=== PATIENT | male | born 1995 | race Caucasian/White ===

== ENCOUNTER 2017-01-12 01:09 | Emergency (ER) | payer BC ==
[~2017-01-12] VITALS: Ht 190.5 cm; Wt 83.8 kg
[2017-01-12 01:12] VITALS: TEMP 36.5; Ht 190.5 cm; Wt 83.8 kg
[2017-01-12] MEDS ORDERED: ONDANSETRON INJ 2 MG/ML 2 ML VIAL IV STA (01:28)
[2017-01-12] MEDS ORDERED: MoRPHine SULFATE 4 MG/ML 1 ML CARP\\VIAL IV PRN (01:30)
[2017-01-12] MEDS ORDERED: SODIUM CHLORIDE 0.9% 1000ML 1,000 ML IV ONE (01:30)
[2017-01-12] MEDS ORDERED: OPTIRAY 320 IV PRN (01:45)
[2017-01-12 01:49] LABS: BASO % 0.4 %; BASO ABS # 0.04 K/uL (0-0.2); COMPLETE YES; EOS % 5.3 %; HEMATOCRIT 43.4 % (42-52); IG% 0.2 %; LYMPH % 27.1 %; LYMPH ABS # 2.47 K/uL (1.2-3.4); MEAN CELL VOLUME 88.8 fL (80-100); MEAN CORPUSCULAR HEMOGLOBIN 31.1 pg (25-34); MEAN PLATELET VOLUME 9.2 fL (7.4-10.4); MONO % 10.1 %; NEUT % 56.9 %; PLATELET COUNT 233 K/uL (130-400); RED BLOOD COUNT 4.89 M/uL (4.7-6.1); WHITE BLOOD COUNT 9.12 K/uL (4.8-10.8)
[2017-01-12 02:06] LABS: BUN/CREATININE RATIO 9.7 (10-20); CALCIUM 9.2 mg/dl (8.5-10.1); CREATININE 1.3 mg/dl (0.60-1.40); POTASSIUM 3.5 mmol/L (3.5-5.1)
[2017-01-12 02:08] LABS: ALB/GLOB RATIO 1.4 (0.9-2)
[2017-01-12 02:56] LABS: URINE APPEARANCE CLEAR (CLEAR); URINE BILIRUBIN NEG (NEG); URINE COLOR YELLOW; URINE EPITHELIAL CELL AUTO 0-5 /lpf (0-5); URINE NITRITE NEG (NEG); URINE SPECIFIC GRAVITY 1.018 (1.000-1.030); UROBILINOGEN NEG (NEG); ZZUR CULT IF INDIC CLEAN CATCH NO
[2017-01-12 03:05] LABS: MANUAL MICROSCOPIC REQUIRED? NO; REVIEW REQ? NO
[2017-01-12] MEDS ORDERED: ONDANSETRON HOME PACK 4MG OD TAB PO ONE (05:00)
[2017-01-12 05:20] VITALS: BP 120/73; PULSE 61; O2SAT 98
--- NOTE | 2017-01-12 06:37 | EMERGENCY ROOM VISIT NOTE ---
History First contact with patient: 01:20 Chief Complaint: ABDOMINAL PAIN Stated Complaint: SEVERE STOMACH PAIN Nursing Triage Summary: pt reports abdominal pain started at 1930 , denies [place] History of Present Illness The patient is a 21 year old male who presents to the Emergency Room with complaints of generalized abdominal pain of increasing severity over the past 5 or 6 hours. 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 The patient woke up around 7 pm tonight, ate dinner, and began to have some worsening of his pain. He has not had fever or chills. No nausea or vomiting. He did attempt to go to work, but states that his pain escalated in severity. He rates his current discomfort 9/10. He has not had symptoms like this in the past. He does not have previous abdominal surgeries. No recent travel history or antibiotic use. No diarrhea. Review of Systems More than 10 systems were reviewed and otherwise negative with the exception of history of present illness. Past Medical/Surgical History No chronic medical disease Social History Smoking Status: Never Smoker Occupation Status: employed Current/Historical Medications No Active Prescriptions or Reported Meds Physical Exam Vital Signs Date Time Temp Pulse Resp B/P (MAP) Pulse Ox O2 Delivery O2 Flow Rate FiO2 01/12/17 05:20 61 18 120/73 98 01/12/17 03:06 51 18 108/59 98 Room Air 01/12/17 01:12 36.5 52 16 135/81 99 Room Air Pain Rating (0-10): 0 Physical Exam VITALS: Vitals are noted on the nurse's note and reviewed by myself. Vital signs stable. GENERAL: Well-developed, well-nourished, white male, who is in no acute distress and resting comfortably. Patient is cooperative with the examination. HEAD: Normocephalic atraumatic. HEART: Regular rate and rhythm without murmurs gallops or rubs. LUNGS: Clear to auscultation bilaterally without wheezes, rales or rhonchi. No retractions or accessory muscle use. ABDOMEN: Positive normal bowel sounds x 4. Soft with generalized abdominal tenderness. Tenderness is most appreciated in the right lower quadrant. No rebound or guarding. No CVA tenderness. MUSCULOSKELETAL: No muscle atrophy, erythema, or edema noted. Full range of motion without joint tenderness in all extremities. Medical Decision & Procedures ER Provider Diagnostic Interpretation: Preliminary Findings Only See Final Report For Complete Findings CT ABDOMEN & PELVIS: Scattered air-fluid levels noted within the bowel without evidence of obstruction; contributing gastroenteritis of consideration. Appendix incompletely profiled although visualized segment appears unremarkable ; no pericecal inflammatory changes. Moderate colonic fecal retention. No free air or fluid. Left renal cyst. Laboratory Results 01/12/17 01:38 Red Blood Count 4.89, Mean Corpuscular Volume 88.8, Mean Corpuscular Hemoglobin 31.1, Mean Corpuscular Hemoglobin Concent 35.0, Mean Platelet Volume 9.2, Neutrophils (%) (Auto) 56.9, Lymphocytes (%) (Auto) 27.1, Monocytes (%) (Auto) 10.1, Eosinophils (%) (Auto) 5.3, Basophils (%) (Auto) 0.4, Neutrophils # (Auto ) 5.19, Lymphocytes # (Auto) 2.47, Monocytes # (Auto) 0.92, Eosinophils # (Auto ) 0.48, Basophils # (Auto) 0.04 01/12/17 01:38 Test 01/12/17 01:38 White Blood Count 9.12 K/uL (4.8-10.8) Red Blood Count 4.89 M/uL (4.7-6.1) Hemoglobin 15.2 g/dL (14.0-18.0) Hematocrit 43.4 % (42-52) Mean Corpuscular Volume 88.8 fL (80-100) Mean Corpuscular Hemoglobin 31.1 pg (25-34) Mean Corpuscular Hemoglobin Concent 35.0 g/dl (32-36) Platelet Count 233 K/uL (130-400) Mean Platelet Volume 9.2 fL (7.4-10.4) Neutrophils (%) (Auto) 56.9 % Lymphocytes (%) (Auto) 27.1 % Monocytes (%) (Auto) 10.1 % Eosinophils (%) (Auto) 5.3 % Basophils (%) (Auto) 0.4 % Neutrophils # (Auto) 5.19 K/uL (1.4-6.5) Lymphocytes # (Auto) 2.47 K/uL (1.2-3.4) Monocytes # (Auto) 0.92 K/uL (0.11-0.59) Eosinophils # (Auto) 0.48 K/uL (0-0.5) Basophils # (Auto) 0.04 K/uL (0-0.2) RDW Standard Deviation 41.7 fL (36.4-46.3) RDW Coefficient of Variation 12.9 % (11.5-14.5) Immature Granulocyte % (Auto) 0.2 % Immature Granulocyte # (Auto) 0.02 K/uL (0.00-0.02) Urine Color YELLOW Urine Appearance CLEAR (CLEAR) Urine pH 6.0 (4.5-7.5) Urine Specific [place] 1.018 (1.000-1.030) Urine Protein NEG (NEG) Urine Glucose (UA) NEG (NEG) Urine Ketones NEG (NEG) Urine Occult Blood TRACE (NEG) Urine Nitrite NEG (NEG) Urine Bilirubin NEG (NEG) Urine Urobilinogen NEG (NEG) Urine Leukocyte Esterase NEG (NEG) Urine WBC (Auto) 0 /hpf (0-5) Urine RBC (Auto) 0-4 /hpf (0-4) Urine Hyaline Casts (Auto) 0 /lpf (0-5) Urine Epithelial Cells (Auto) 0-5 /lpf (0-5) Urine Bacteria (Auto) NEG (NEG) Anion Gap 7.0 mmol/L (3-11) Est Creatinine Clear Calc Drug Dose 106.5 ml/min Estimated GFR () 90.4 Estimated GFR (Non- 78.0 BUN/Creatinine Ratio 9.7 (10-20) Calcium Level 9.2 mg/dl (8.5-10.1) Total Bilirubin 0.9 mg/dl (0.2-1) Aspartate Amino Transf (AST/SGOT) 24 U/L (15-37) Alanine Aminotransferase (ALT/SGPT) 31 U/L (12-78) Alkaline Phosphatase 62 U/L (45-117) Total Protein 7.1 gm/dl (6.4-8.2) Albumin 4.1 gm/dl (3.4-5.0) Globulin 3.0 gm/dl (2.5-4.0) Albumin/Globulin Ratio 1.4 (0.9-2) Lipase 157 U/L (73-393) Medications Administered Medications (Trade) Dose Ordered Sig/Addison Route Start Time Stop Time Status Last Admin Dose Admin Morphine Sulfate (MoRPHine SULFATE INJ) 4 mg Q1H PRN IV 01/12/17 01:30 8/6/17 01:29 01/12/17 01:40 4 MG Sodium Chloride 1,000 ml @ 999 mls/hr Q1H1M ONCE IV 01/12/17 01:30 01/12/17 02:30 DC 01/12/17 01:40 999 MLS/HR Ondansetron HCl (Zofran Inj) 4 mg NOW STAT IV 01/12/17 01:28 01/12/17 01:30 DC 01/12/17 01:40 4 MG Ondansetron HCl (ZOFRAN ODT 4MG Home Pack) 1 homepack UD ONCE PO 01/12/17 05:00 01/12/17 05:01 DC 01/12/17 05:00 1 HOMEPACK ED Course Physical exam and history were performed. Nursing notes, EMR, and Medication List were personally reviewed. Patient appears to have generalized abdominal pain for the past several hours. He does have tenderness is best appreciated in the right lower quadrant on abdominal exam. IV access was established and labs were obtained. The patient was hydrated as above. CT scan with contrast was ordered. The patient's blood work is as above and was reviewed. He does not have a significant elevated white blood count, gross anemia, bandemia, or significant electrolyte imbalance. Lipase and transaminases were nondiagnostic. CT scan did not show evidence of acute appendicitis. There were signs of a viral infection and some constipation. Overall the patient felt much better after hydration and medication here in the department. I suspect his symptoms are likely viral in nature and explained this to the patient. I asked the patient follow up closely with his primary care physician in the next 1-2 days for recheck. I will give him a home pack of Zofran to be used if needed. The patient was otherwise invited back with any new, worsening, or concerning symptoms. The chart was completed utilizing [employer] Speech Voice Recognition Software. Grammatical errors, random word insertions, pronoun errors, and incomplete sentences are an occasional consequence of this system due to software limitations, ambient noise, and hardware issues. Any formal questions or concerns about the content, text, or information contained within the body of this dictation should be directly addressed to the provider for clarification. . Medical Decision Differential diagnosis: Etiologies such as appendicitis, diverticulitis, PUD, biliary pathology, UTI, pancreatitis, obstruction, mesenteric ischemia, aortic pathology, infections, inflammatory bowel disease, renal colic, as well as others were entertained. Impression Primary Impression: Generalized abdominal pain Departure Information Dispostion Home / Self-Care Condition GOOD Prescriptions No Active Prescriptions or Reported Meds Forms HOME CARE DOCUMENTATION FORM, Work Instructions, Additional Instructions: Patient seen and evaluated today in the emergency department for medica care. Return to work on 01/15/2017. Please excuse. IMPORTANT VISIT INFORMATION Patient Instructions My [facility] Additional Instructions You were seen and evaluated today on an emergency basis only. This is not a substitute for, or an effort to provide, complete comprehensive medical care. It is not possible to recognize and treat all injuries or illnesses in a single emergency department visit. For this reason it is recommended that you followup with your primary care physician in the next 1-2 days for recheck of your condition. Drink plenty fluids and remain well hydrated. For baseline pain relief you may alternate ibuprofen and acetaminophen every 4 hours for pain control. Take 600 mg ibuprofen (Advil) and then 4 hours later take 1000 mg acetaminophen (Tylenol). Do not take more than 3000 mg acetaminophen in a single day. Zofran 1 tablet every 6 hrs as needed for nausea. You are welcome to return to the emergency department anytime with new, worsening, or concerning symptoms. Work Instructions Additional Work Instructions: Patient seen and evaluated today in the emergency department for medical care. Return to work on 01/15/2017. Please excuse.
--- NOTE | 2017-01-12 08:17 | DIAGNOSTIC IMAGING REPORT ---
CT ABD/PELVIS IV AND ORAL CONT CLINICAL HISTORY: Severe right lower quadrant abdominal pain COMPARISON STUDY: None. TECHNIQUE: Following the IV administration of 94 mL of Optiray-320, CT scan of the abdomen and pelvis was performed from the lung bases to the proximal femurs. Images are reviewed in the axial, sagittal, and coronal planes. IV contrast was administered without complication. A dose lowering technique was utilized adhering to the principles of ALARA. CT DOSE: 337.35 mGy.cm FINDINGS: Lower chest: The heart is normal in size and configuration, without pericardial effusion. The lung bases and pleural spaces are clear. Liver: The contrast-enhanced liver is normal in size, contour, and attenuation. There is no intrahepatic biliary ductal dilatation. The hepatic veins and portal veins are patent. Gallbladder: Unremarkable. Spleen: Normal in size and attenuation. Pancreas: Unremarkable. Adrenal glands: Unremarkable. Kidneys: There is a 2 cm left renal cyst. There is no hydronephrosis. Bowel: There are no transition zones indicate bowel obstruction. There is no acute diverticulitis. There is no acute appendicitis. Peritoneum: There is no intraperitoneal free air or abdominal ascites. Vasculature: The abdominal aorta is normal in course and caliber. Adenopathy: None. Pelvic viscera: The bladder, and pelvic viscera are unremarkable. Skeletal structures: No destructive osseous lesions are seen. IMPRESSION: 1. No evidence of bowel obstruction. No evidence of free air 2. 2 cm left renal cyst 3. No evidence of acute appendicitis. No evidence of acute diverticulitis. Electronically signed by: Terence Pizarro M.D. 01/12/2017 8:16 AM Dictated Date/Time: 01/12/2017 8:13 AM
== END 2017-01-12 05:22 | disposition home or self-care (01) ==
LOC: C.EDB 01:11
DX: R10.84 Generalized abdominal pain (principal)

== ENCOUNTER 2017-07-08 00:16 | Emergency (ER) | payer BC ==
[~2017-07-08] VITALS: Ht 190.5 cm; Wt 96.3 kg
[2017-07-08 00:17] VITALS: TEMP 36.9; Ht 190.5 cm; Wt 96.3 kg
[2017-07-08] MEDS ORDERED: LORAZEPAM 2 MG/ML 1 ML VIAL IV STA (00:39)
--- NOTE | 2017-07-08 00:43 | EMERGENCY ROOM VISIT NOTE ---
History Report prepared by Claytonibcastro: Kenna Busch Under the Supervision of: Dr. Aicha Flores D.O. First contact with patient: 00:22 Chief Complaint: FOOD BOLUS Stated Complaint: CHOKING History of Present Illness The patient is a 22 year old male who presents to the Emergency Room with complaints of episode of getting food stuck in his throat. The patient states that ate a steak at 6pm yesterday, about six and a half hours ago. The patient notes that since eating he feels like the food is stuck in his throat. When he tries to drink water he states he starts "violently" choking. He states that when he has episodes of choking a little bit of steak comes up with the water. He notes he gets food stuck in his throat relatively often; however, he reports this is the longest he has had food stuck before. He denies ever having follow up for this issue before. Source of History: patient Onset: 6 hours ago Position: throat Quality: other (food stuck) Timing: other (episode) Modifying Factors (Relieving): other (none) Note: Pt notes choking when drinking water. Review of Systems See HPI for pertinent positives & negatives. A total of 6 systems reviewed and were otherwise negative. Past Medical & Surgical None Family History Cancer Social History Smoking Status: Never Smoker Smokeless Tobacco Use: No Alcohol Use: occasionally Housing Status: lives with roommate Occupation Status: employed Current/Historical Medications No Active Prescriptions or Reported Meds Allergies Coded Allergies: Penicillins (Verified Allergy, Unknown, Unknown -- childhood, 07/08/17) Physical Exam Vital Signs Date Time Temp Pulse Resp B/P (MAP) Pulse Ox O2 Delivery O2 Flow Rate FiO2 07/08/17 02:31 136/83 07/08/17 02:21 103 17 94 07/08/17 02:01 141/75 07/08/17 01:51 91 95 07/08/17 01:46 75 96 Room Air 07/08/17 01:31 83 147/88 97 07/08/17 01:16 93 18 97 07/08/17 01:15 133/74 07/08/17 00:17 36.9 84 20 122/81 94 Room Air Physical Exam HEENT: Head - normocephalic and atraumatic Pupils are equal, round, and reactive to light. Extraocular eye muscles are intact, and sclera are anicteric. Nose - moist nasal mucosa without discharge. Mouth - moist buccal mucosa. Oropharynx is nonerythematous and there is no tonsillar exudate or edema noted. Neck: Supple; no JVD, nuchal rigidity, cervical lymphadenopathy. Heart: Regular rate and rhythm. There is a normal S1 and S2 with no murmurs, clicks, or gallops appreciated. Lungs: Clear to auscultation bilaterally with no wheezes, rales, or rhonchi. Abdomen: Soft, completely nontender, nondistended, with good bowel sounds. There are no palpable pulsatile masses or hepatosplenomegaly. There is no guarding, rigidity, or rebound noted. Extremities: No evidence of cyanosis, clubbing, or edema. There are easily palpable peripheral pulses. Skin: warm and dry with good turgor and no rashes. Medical Decision & Procedures Medications Administered Medications (Trade) Dose Ordered Sig/Addison Route Start Time Stop Time Status Last Admin Dose Admin Lorazepam (Ativan Inj) 1 mg NOW STAT IV 07/08/17 00:39 07/08/17 00:41 DC 07/08/17 01:07 1 MG Glucagon (Glucagon Inj) 1 mg NOW STAT IV 07/08/17 01:32 07/08/17 01:33 DC 07/08/17 01:59 1 MG Procedure Ativan IV, Glucagon IV. ED Course 0032: Past medical records reviewed. The patient was evaluated in room B2. A complete history and physical exam was performed. An IV lock was initiated 0039: Ordered Ativan Inj 1 mg IV. 0126: The patient was unable to swallow water without immediately bringing it back up. 0132: Ordered Glucagon 1 mg IV. 0214: The patient was able to cough up the food. He now is complaining of a nose bleed. 0225: The patient is feeling much better. he is able to drink water without difficulty. 0240: Upon reevaluation, the patient is resting comfortably. I discussed findings and results with him. He verbalized agreement of the treatment plan. The patient was discharged home. Medical Decision The patient is a 22 year old male who presents to the ED with episode of chocking on food. Differential diagnosis includes food bolus, foreign body in posterior oropharynx, choking. The patient had an obvious fluid bolus. By history, the patient frequently has difficulty getting his food passed into his stomach. I spent some time talking to the patient about his need for follow-up with GI. He was encouraged to take clear liquids and a soft diet over the next 3-5 days. Return to the emergency department if he developed worsening chest pain or fever. Medication Reconcilliation Current Medication List: was personally reviewed by me Blood Pressure Screening Patient's blood pressure: Elevated blood pressure Blood pressure disposition: Elevated BP felt to be situational Impression Primary Impression: Obstruction of esophagus due to food impaction Scribe Attestation The scribe's documentation has been prepared under my direction and personally reviewed by me in its entirety. I confirm that the note above accurately reflects all work, treatment, procedures, and medical decision making performed by me. Departure Information Dispostion Home / Self-Care Prescriptions No Active Prescriptions or Reported Meds Referrals No Doctor, Assigned (PCP) Forms HOME CARE DOCUMENTATION FORM, IMPORTANT VISIT INFORMATION, WORK / SCHOOL INSTRUCTIONS Patient Instructions ED Foreign Body Esophageal Rslv, My [facility] Additional Instructions Rest. Take plenty of clear liquids and soft foods over next 3-5 days Return to the ER for any worsening chest pain or fever
[2017-07-08] MEDS ORDERED: GLUCAGON FOR INJ 1 MG VIAL IV STA (01:32)
[2017-07-08 02:21] VITALS: PULSE 103; O2SAT 94
[2017-07-08 02:31] VITALS: BP 136/83
== END 2017-07-08 02:36 | disposition home or self-care (01) ==
LOC: C.EDB 00:17
DX: T17.208A Unspecified foreign body in pharynx causing other injury, initial encounter (principal); X58.XXXA Exposure to other specified factors, initial encounter; Z88.0 Allergy status to penicillin; Z80.9 Family history of malignant neoplasm, unspecified